=== PATIENT | male | born 1950 | race Caucasian/White ===

== ENCOUNTER 2021-10-18 20:46 | Inpatient (IN) | payer OTHER, MEDICAID ==
[~2021-10-18] VITALS: Ht 175.3 cm; Wt 86.0 kg
[~2021-10-18 20:46] MED LIST: AML5T PO; GABA300C10 PO; METF-370 PO; SIMV-13 PO
[2021-10-18] MEDS ORDERED: ETOMIDATE (2MG/ML) 20ML VIAL IV ONE (20:49)
[2021-10-18] MEDS ORDERED: SUCCINYLCHOLINE CHLORIDE 20 MG/ML 10ML VIAL IV ONE (20:50)
[2021-10-18] MEDS ORDERED: ASPirin 300 MG RECTAL SUPP PR ONE (21:15)
[2021-10-18] MEDS ORDERED: HEPARIN DRIP/D5W 100UNITS/ML 250 ML IV SCH (21:15)
[2021-10-18] MEDS ORDERED: HEPARIN SODIUM (PORCINE) 5000 UNITS/ML 1ML VIAL IV ONE (21:15)
[2021-10-18] MEDS ORDERED: HEPARIN IN NS 1000Units/500mL 1,500 ML ONE (21:22)
[2021-10-18] MEDS ORDERED: LIDOCAINE 2%HCL (LOCAL ANESTH.) INJ 20ML MDV ONE (21:22)
[2021-10-18] MEDS ORDERED: IODIXANOL 320MG/ML 100ML BTL IV ONE ×2 (21:22→22:14)
[2021-10-18] MEDS ORDERED: NOREPINEPHRINE 8 MG/250ML KIT 250 ML IV ONE ×3 (21:24→23:19)
[2021-10-18] MEDS ORDERED: ANGIOMAX 250 MG VIAL IV ONE (21:26)
[2021-10-18] MEDS ORDERED: SODIUM CHL 0.9% 50 ML ONE (21:26)
[2021-10-18 21:27] LABS: Basophils # (auto) 0.2 10 ^3/uL (0-0.2); Basophils % (auto) 1.1 % (0.0-2.0); Eosinophils # (auto) 0.1 10 ^3/uL (0-0.8); Eosinophils % (auto) 0.6 % (0.0-7.0); Hematocrit 37.5 % (41.0-53.0); Hemoglobin 11.8 g/dL (13.5-17.5); Lymphocytes # (auto) 5.3 10 ^3/uL (0.4-5.4); Lymphocytes % (auto) 34.8 % (10.0-50.0); Mean Corpuscular Hemoglobin 28.3 pg (28.0-32.0); Mean Corpuscular Hgb Conc. 31.4 g/dL (32.0-36.0); Mean Corpuscular Volume 90.3 fL (80.0-100.0); Monocytes # (auto) 1.1 10 ^3/uL (0-1.3); Monocytes % (auto) 6.9 % (0.0-12.0); Neutrophils # (auto) 8.7 10 ^3/uL (1.6-8.6); Neutrophils % (auto) 56.6 % (37.0-80.0); Nucleated Red Blood Cells % 0.2 %; Red Blood Cells 4.15 10^6/uL (4.5-5.90); White Blood Cell 15.4 10^3/uL (4.4-10.8)
[2021-10-18] MEDS ORDERED: ATROPINE SULF 1 MG/10ml SYR ONE (21:35)
[2021-10-18] MEDS ORDERED: niCARdipine 25 MG/10 ML VIAL IV ONE (21:35)
[2021-10-18 21:38] LABS: Calcium 7.8 mg/dL (8.5-10.1)
[2021-10-18 21:43] LABS: BUN/Creatinine Ratio 10.2; Bilirubin, Total 0.4 mg/dL (0.2-1.0); Total Protein 7.6 g/dL (6.4-8.2)
[2021-10-18] MEDS ORDERED: ATROPINE SULF 0.5 MG/5ML SYR ONE (21:46)
[2021-10-18] MEDS ORDERED: EPINEPHrine HCL 250 ML IV ONE (21:46)
[2021-10-18 21:54] LABS: Potassium 2.6 mmol/L (3.5-5.1)
[2021-10-18 21:59] LABS: INR 1.07 (0.9-1.15); Partial Thromboplastin Time 29.6 sec (23.6-33.0)
[2021-10-18] MEDS ORDERED: PROPOFOL 100 ML IV ONE (23:04)
[2021-10-18] MEDS ORDERED: MIDAZOLAM DRIP 50 mg/50mL 50 ML IV ONE (23:04)
[2021-10-18 23:10] VITALS: BP 127/55
[2021-10-18 23:25] VITALS: BP 70/38
[2021-10-18] MEDS ORDERED: SODIUM BICARBONATE 8.4% INJ 50ML SYRINGE ONE (23:28)
[2021-10-18] MEDS ORDERED: MORPHINE SULFATE INJECTION 2 MG/ML SYRG IV PRN (23:30)
[2021-10-18] MEDS ORDERED: NITROGLYCERIN 0.4 MG SL TAB SL PRN (23:30)
[2021-10-18] MEDS ORDERED: PIPERACILLIN-TAZOB 2.25GM 50 ML IV ONE (23:30)
[2021-10-18] MEDS ORDERED: CLOPIDOGREL BISULFATE 75 MG TAB NG ONE (23:30)
[2021-10-18 23:45] VITALS: BP 111/45
[2021-10-18] MEDS: DOPamine 1600MCG/ML D5W 250 ML IV SCH (23:45)
[2021-10-18] MEDS ORDERED: AMIODARONE 450mg/250ml AE 250 ML IV SCH (23:45)
[2021-10-18 23:50] VITALS: BP 111/45
[2021-10-18] MEDS ORDERED: POTASSIUM CHL 20MEQ/100ML 100 ML IV ONE (23:51)
[2021-10-18 23:55] VITALS: BP 119/38
[2021-10-19] VITALS (117 sets, daily range): BP systolic 60–171; BP diastolic 29–61
[2021-10-19] MEDS ORDERED: POTASSIUM CHL 20MEQ/100ML 100 ML IV SCH
[2021-10-19] MEDS ORDERED: CLOPIDOGREL 300 MG TAB ONE (00:50)
[2021-10-19] MEDS: NOREPINEPHRINE 8 MG/250ML KIT 250 ML IV SCH ×3 (01:05→10:04)
[2021-10-19] MEDS: PROPOFOL 100 ML IV SCH ×2 (01:15→22:03)
[2021-10-19] MEDS: VASOPRESSIN 50 UNITS in D5W 5% 247.5 ML IV SCH (01:45)
[2021-10-19] MEDS ORDERED: METOPROLOL SUCCINATE XL 50 MG TAB PO ONE (02:00)
[2021-10-19] MEDS: fentaNYL Drip 2500mCg/250mlNS 250 ML IV SCH (03:11)
[2021-10-19] MEDS: MIDAZOLAM DRIP 50 mg/50mL 50 ML IV SCH ×3 (03:12→22:04)
[2021-10-19 05:05] LABS: Basophils # (auto) 0 10 ^3/uL (0-0.2); Basophils % (auto) 0.2 % (0.0-2.0); Eosinophils # (auto) 0 10 ^3/uL (0-0.8); Hematocrit 32.1 % (41.0-53.0); Lymphocytes # (auto) 0.6 10 ^3/uL (0.4-5.4); Lymphocytes % (auto) 3.3 % (10.0-50.0); Mean Corpuscular Hemoglobin 28.4 pg (28.0-32.0); Mean Corpuscular Hgb Conc. 31.1 g/dL (32.0-36.0); Monocytes # (auto) 1.1 10 ^3/uL (0-1.3); Monocytes % (auto) 5.9 % (0.0-12.0); Neutrophils # (auto) 17.6 10 ^3/uL (1.6-8.6); Neutrophils % (auto) 90.6 % (37.0-80.0); Nucleated Red Blood Cells % 0.2 %; Red Blood Cells 3.53 10^6/uL (4.5-5.90); White Blood Cell 19.4 10^3/uL (4.4-10.8)
[2021-10-19 05:26] LABS: Calcium 8.1 mg/dL (8.5-10.1)
[2021-10-19] MEDS: EPINEPHrine HCL 250 ML IV SCH ×2 (05:33→23:45)
[2021-10-19] MEDS: PHENYLEPHRINE IV 250 ML IV SCH ×2 (05:35→10:05)
[2021-10-19 05:40] LABS: Potassium 2.4 mmol/L (3.5-5.1)
[2021-10-19 05:41] LABS: Magnesium 5.6 mg/dL (1.6-2.6)
[2021-10-19] MEDS ORDERED: POTASSIUM CHL 20MEQ/100ML 100 ML IV ONE ×2 (05:45→06:01)
[2021-10-19] MEDS ORDERED: PANTOPRAZOLE 40 MG/10 ML VIAL INJ IV ONE (10:00)
[2021-10-19] MEDS: CLOPIDOGREL BISULFATE 75 MG TAB NG SCH (10:03)
[2021-10-19] MEDS: ASPirin-EC 81 mg tab PO SCH (10:03)
[2021-10-19 10:43] LABS: Basophils # (auto) 0 10 ^3/uL (0-0.2); Basophils % (auto) 0.1 % (0.0-2.0); Eosinophils # (auto) 0 10 ^3/uL (0-0.8); Hematocrit 33.1 % (41.0-53.0); Hemoglobin 10.3 g/dL (13.5-17.5); Lymphocytes # (auto) 0.6 10 ^3/uL (0.4-5.4); Lymphocytes % (auto) 3.4 % (10.0-50.0); Mean Corpuscular Hemoglobin 28.4 pg (28.0-32.0); Mean Corpuscular Hgb Conc. 31.2 g/dL (32.0-36.0); Monocytes # (auto) 1.3 10 ^3/uL (0-1.3); Monocytes % (auto) 7.3 % (0.0-12.0); Neutrophils # (auto) 16.3 10 ^3/uL (1.6-8.6); Neutrophils % (auto) 89.2 % (37.0-80.0); Nucleated Red Blood Cells % 0.1 %; Red Blood Cells 3.64 10^6/uL (4.5-5.90); White Blood Cell 18.3 10^3/uL (4.4-10.8)
[2021-10-19 11:08] LABS: Magnesium 5.1 mg/dL (1.6-2.6); Potassium 2.4 mmol/L (3.5-5.1)
[2021-10-19] MEDS: POTASSIUM CHL 20MEQ/100ML 100 ML IV SCH ×2 (11:27→13:15)
[2021-10-19] MEDS ORDERED: SODIUM BICARBONATE 8.4 % INJ 50ML VIAL IV ONE (11:39)
[2021-10-19] MEDS ORDERED: EPINEPHrine HCL 1 MG/10 ML SYRG IV ONE ×2 (11:39→17:02)
[2021-10-19] MEDS ORDERED: AMIODARONE HCL (50 MG/ ML) 3 ML VIAL IV ONE ×2 (11:39→17:02)
[2021-10-19] MEDS ORDERED: CALCIUM CHLOR(10%) 100MG/ML 10ML SYRINGE IV ONE (11:39)
[2021-10-19] MEDS ORDERED: DEXTROSE (50%) 50ML SYRG IV PRN (12:15)
[2021-10-19] MEDS: DOPamine 1600MCG/ML D5W 250 ML IV SCH (13:58)
[2021-10-19] MEDS ORDERED: NOREPINEPHRINE BITARTRATE 32 MG in SODIUM CHL 0.9% 218 ML IV SCH (14:30)
[2021-10-19] MEDS ORDERED: POTASSIUM EFFERVESENT TAB 25 MEQ GT ONE ×2 (14:30→20:00)
[2021-10-19] MEDS ORDERED: PHENYLEPHRINE IV 250 ML IV ONE (14:48)
[2021-10-19] MEDS: PHENYLEPHRINE INJ 80 MG in SODIUM CHL 0.9% 242 ML IV SCH ×2 (16:00→23:21)
[2021-10-19 16:09] LABS: Creatinine, Urine 69 mg/dL (30.0-125.0); Protein, Urine 238.9 mg/dL (0.0-11.9); Sodium Urine 29 mmol/L (40-220)
[2021-10-19 16:40] LABS: Urine Bacteria FEW /hpf (None Seen); Urine Blood 3+ /uL (Negative); Urine WBC 35 /hpf (0 - 3)
[2021-10-19] MEDS ORDERED: DOPamine 1600mCg/ml 400MG/250ml NSorD5 KIT/BAG IV ONE (17:02)
[2021-10-19] MEDS ORDERED: SODIUM BICARBONATE 8.4% INJ 50ML SYRINGE IV ONE (17:02)
[2021-10-19] MEDS ORDERED: MAGNESIUM SULF 50% 40 MEQ/10 ML VL IV ONE (17:02)
[2021-10-19] MEDS: ACCU-CHEK COMFORT CURVE STRIP VI SCH (17:25)
[2021-10-19] MEDS: InsuLIN REG 1unit/0.01ml Soln (100units/ml) SC SCH (17:25)
[2021-10-19 18:56] LABS: Phosphorus 4.6 mg/dL (2.5-4.90)
[2021-10-19 19:27] LABS: Magnesium 4.1 mg/dL (1.6-2.6)
[2021-10-20] VITALS (49 sets, daily range): BP systolic 119–156; BP diastolic 30–59
[2021-10-20] MEDS: fentaNYL Drip 2500mCg/250mlNS 250 ML IV SCH (01:45)
[2021-10-20] MEDS: VASOPRESSIN 50 UNITS in D5W 5% 247.5 ML IV SCH (01:45)
[2021-10-20 04:40] LABS: Basophils # (auto) 0 10 ^3/uL (0-0.2); Basophils % (auto) 0.1 % (0.0-2.0); Eosinophils # (auto) 0 10 ^3/uL (0-0.8); Hematocrit 27.5 % (41.0-53.0); Lymphocytes # (auto) 1.1 10 ^3/uL (0.4-5.4); Lymphocytes % (auto) 6.9 % (10.0-50.0); Mean Corpuscular Hemoglobin 29.3 pg (28.0-32.0); Mean Corpuscular Hgb Conc. 32.6 g/dL (32.0-36.0); Monocytes # (auto) 1.2 10 ^3/uL (0-1.3); Monocytes % (auto) 7.5 % (0.0-12.0); Neutrophils % (auto) 85.5 % (37.0-80.0); Nucleated Red Blood Cells % 0.1 %; Red Blood Cells 3.06 10^6/uL (4.5-5.90); Red Cell Distribution Width 16.8 % (11.8-14.3); White Blood Cell 16.4 10^3/uL (4.4-10.8)
[2021-10-20 05:01] LABS: BUN/Creatinine Ratio 11.5; Calcium 6.7 mg/dL (8.5-10.1); Potassium 3.3 mmol/L (3.5-5.1)
[2021-10-20] MEDS: InsuLIN REG 1unit/0.01ml Soln (100units/ml) SC SCH ×3 (05:43→11:29)
[2021-10-20] MEDS: ACCU-CHEK COMFORT CURVE STRIP VI SCH ×3 (05:43→11:29)
[2021-10-20] MEDS ORDERED: PROPOFOL 100 ML IV ONE (07:56)
[2021-10-20] MEDS ORDERED: fentaNYL Drip 2500mCg/250mlNS 250 ML IV ONE (07:57)
[2021-10-20] MEDS ORDERED: DOPamine 1600MCG/ML D5W 250 ML IV SCH (09:30)
[2021-10-20] MEDS ORDERED: POTASSIUM EFFERVESENT TAB 25 MEQ GT ONE (09:30)
[2021-10-20] MEDS ORDERED: PIPERACILLIN-TAZOB 3.375GM 100 ML IV SCH (10:00)
[2021-10-20] MEDS: CLOPIDOGREL BISULFATE 75 MG TAB NG SCH (10:12)
[2021-10-20] MEDS: ASPirin-EC 81 mg tab PO SCH (10:12)
[2021-10-20] MEDS ORDERED: MORPHINE SULFATE INJECTION 2 MG/ML SYRG IV PRN (11:45)
[2021-10-20] MEDS ORDERED: LORazepam 2MG/ML-1ML VIAL IV PRN (11:45)
== END 2021-10-20 12:28 | DRG 981 ==
LOC: ER 20:46 → ICU WEST 23:18
PROVIDERS: ADMIT Specialist; ATTEND Specialist
PROC: 027036Z Dilation of Coronary Artery, One Artery with Three Drug-eluting Intraluminal Devices, Percutaneous Approach (ICD-10-PCS; principal; 2021-10-18)
PROC: B211YZZ Fluoroscopy of Multiple Coronary Arteries using Other Contrast (ICD-10-PCS; 2021-10-18)
PROC: B41FYZZ Fluoroscopy of Right Lower Extremity Arteries using Other Contrast (ICD-10-PCS; 2021-10-18)
PROC: 5A12012 Performance of Cardiac Output, Single, Manual (ICD-10-PCS; 2021-10-18)
PROC: 5A1945Z Respiratory Ventilation, 24-96 Consecutive Hours (ICD-10-PCS; 2021-10-18)
PROC: 0BH17EZ Insertion of Endotracheal Airway into Trachea, Via Natural or Artificial Opening (ICD-10-PCS; 2021-10-18)
PROC: 06HM33Z Insertion of Infusion Device into Right Femoral Vein, Percutaneous Approach (ICD-10-PCS; 2021-10-19)
PROC: B54BZZA Ultrasonography of Right Lower Extremity Veins, Guidance (ICD-10-PCS; 2021-10-19)
PROC: 04HY32Z Insertion of Monitoring Device into Lower Artery, Percutaneous Approach (ICD-10-PCS; 2021-10-19)
PROC: 4A133B1 Monitoring of Arterial Pressure, Peripheral, Percutaneous Approach (ICD-10-PCS; 2021-10-19)
PROC: 4A133J1 Monitoring of Arterial Pulse, Peripheral, Percutaneous Approach (ICD-10-PCS; 2021-10-19)
DX: J96.01 Acute respiratory failure with hypoxia (principal); I21.19 ST elevation (STEMI) myocardial infarction involving other coronary artery of inferior wall; N17.0 Acute kidney failure with tubular necrosis; A41.9 Sepsis, unspecified organism; G93.1 Anoxic brain damage, not elsewhere classified; I13.0 Hypertensive heart and chronic kidney disease with heart failure and stage 1 through stage 4 chronic kidney disease, or unspecified chronic kidney disease; R57.0 Cardiogenic shock; Z66 Do not resuscitate; I46.9 Cardiac arrest, cause unspecified; E87.6 Hypokalemia; D63.1 Anemia in chronic kidney disease; E11.22 Type 2 diabetes mellitus with diabetic chronic kidney disease; I50.9 Heart failure, unspecified; N18.9 Chronic kidney disease, unspecified; Z20.822 Contact with and (suspected) exposure to COVID-19; E88.09 Other disorders of plasma-protein metabolism, not elsewhere classified; E78.5 Hyperlipidemia, unspecified; F17.210 Nicotine dependence, cigarettes, uncomplicated; I25.10 Atherosclerotic heart disease of native coronary artery without angina pectoris; Z80.3 Family history of malignant neoplasm of breast; Z80.42 Family history of malignant neoplasm of prostate; Z82.49 Family history of ischemic heart disease and other diseases of the circulatory system; Z83.3 Family history of diabetes mellitus; Z90.49 Acquired absence of other specified parts of digestive tract; Z51.5 Encounter for palliative care
CPT/HCPCS: 31500; 36415; 36600; 71045; 75710; 80048; 80053; 81001; 82140; 82570; 82805; 82962; 83690; 83735; 83880; 84100; 84132; 84156; 84300; 84484; 85025; 85610; 85730; 86850; 86900; 86901; 87070; 87081; 87205; 87426; 92928; 92929; 92950; 93005; 93306; 93454; 94002; 94003; 95819; 96361; 96365; 96367; 99152; 99153; 99291; C1874; C9113; G0378; J0171; J0330; J0461; J2250; J2543; J2704; J3480; J7060; Q9967